=== PATIENT | female | born 1950 | race Caucasian/White ===

== ENCOUNTER 2017-10-15 18:04 | Emergency (ER) | payer MEDICARE, OTHER ==
[~2017-10-15] VITALS: Ht 160 cm; Wt 83.0 kg
[2017-10-15 18:07] VITALS: BP 120/75; PULSE 60; RESP 16; TEMP 98.2; O2SAT 97
[2017-10-15] MEDS ORDERED: ALLO300T2 PO (19:39)
[2017-10-15] MEDS ORDERED: PAXI10TA8 PO (19:39)
[2017-10-15] MEDS ORDERED: CELE200C PO (19:39)
[2017-10-15] MEDS ORDERED: ATEN1TAB74 PO (19:39)
[2017-10-15] MEDS ORDERED: DIAZ5 PO (19:39)
[2017-10-15] MEDS ORDERED: PROT40TA PO (19:39)
[2017-10-15] MEDS ORDERED: CARA1TAB6 PO (19:39)
[2017-10-15] MEDS ORDERED: ATOR10TA15 PO (19:39)
[2017-10-15] MEDS ORDERED: HYDR25TA5 PO (19:39)
--- NOTE | 2017-10-15 20:36 | RADRPT ---
EXAM DATE/TIME: 10/15/2017 19:40 [facility] COMPARISON: No previous studies available for comparison. INDICATIONS : Patient twisted left knee 3 days ago, now unable to bear weight. MEDICAL HISTORY : None. SURGICAL HISTORY : None. ENCOUNTER: Initial ACUITY: 3 days PAIN SCORE: 9/10 LOCATION: Left knee FINDINGS: Four view examination of the left knee demonstrates no evidence of fracture or dislocation. Bony min eralization is normal. The articular surfaces are intact. The suprapatellar soft tissues have a nor mal configuration. CONCLUSION: 1. No acute findings. Alexx Torres MD on October 15, 2017 at 20:33 Board Certified Radiologist. This report was verified electronically.
--- NOTE | 2017-10-15 20:38 | PD ---
HPI Chief Complaint: Injury Time Seen by Provider: 20:21 Travel History International Travel<30 days: No Contact w/Intl Traveler<30days: No Traveled to known affect area: No History of Present Illness HPI 67-year-old female presents to the ED for evaluation 04/12 knee pain. Onset yesterday after the patient states "I turned and my knee stayed." She denies falling to the ground. She states that the leg feels unstable. She denies numbness, tingling, weakness, limitations to range of motion. She denies previous injury to the knee. Patient resides in [place] and is here visiting family. PFSH Past Medical History Depression: Yes Cardiovascular Problems: Yes (HTN) High Cholesterol: Yes Diminished Hearing: No Gastrointestinal Disorders: Yes GERD: Yes Hypertension: Yes Immunizations Current: Yes Tetanus Vaccination: Unknown Influenza Vaccination: No ?: Not Menopausal: Yes Ectopic : Yes Past Surgical History Cholecystectomy: Yes Hysterectomy: Yes Social History Alcohol Use: Yes (rare) Tobacco Use: No Substance Use: No Allergies-Medications (Allergen,Severity, Reaction): Coded Allergies: Penicillins (Verified Allergy, Intermediate, ITCHING, 10/15/17) metoclopramide (Verified Adverse Reaction, Intermediate, MAKES ME CRAZY, ) Reported Meds & Prescriptions Reported Meds & Active Scripts Active Reported Carafate (Sucralfate) 1 Gram Tab 1 Gm PO DIRECTED On empty stomach Paxil (Paroxetine HCl) 10 Mg Tab 20 Mg PO DAILY Hydrochlorothiazide 25 Mg Tab 25 Mg PO DAILY Atorvastatin (Atorvastatin Calcium) 10 Mg Tab 10 Mg PO HS Valium (Diazepam) 5 Mg Tab 5 Mg PO BID PRN Protonix (Pantoprazole Sodium) 40 Mg Tab 40 Mg PO DAILY Celebrex (Celecoxib) 200 Mg Cap 200 Mg PO BID Allopurinol 300 Mg Tab 300 Mg PO DAILY Tenormin (Atenolol) 50 Mg Tab 50 Mg PO BID Review of Systems Except as stated in HPI: all other systems reviewed are Neg Physical Exam Narrative GENERAL: Well-nourished, well-developed white female in no acute distress. SKIN: Focused skin assessment warm/dry. HEAD: Normocephalic. EYES: No scleral icterus. No injection or drainage. NECK: Supple, trachea midline. No JVD or lymphadenopathy. CARDIOVASCULAR: Regular rate and rhythm without murmurs, gallops, or rubs. RESPIRATORY: Breath sounds equal bilaterally. No accessory muscle use. GASTROINTESTINAL: Abdomen soft, non-tender, nondistended. MUSCULOSKELETAL: No cyanosis, or edema. FOCUSED LEFT LOWER EXTREMITIES EXAM: 2+. No edema or ecchymosis noted. No tenderness to palpation over the anterior aspect of the knee. Moderate posterior tenderness to palpation. Patient is able to flex beyond 90 and extend to 0. Flexion elicits pain. No tenderness to palpation of the joint lines. No patellar balloting. Negative varus/valgus stress testing. Negative anterior/posterior drawer testing. BACK: Nontender without obvious deformity. No CVA tenderness. Data Data Last Documented VS Vital Signs Date Time Temp Pulse Resp B/P (MAP) Pulse Ox O2 Delivery O2 Flow Rate FiO2 10/15/17 18:07 98.2 60 16 120/75 (90) 97 Orders Orders Knee, Complete (4vws) (10/15/17 19:29) Ice/Cold Pack (10/15/17 19:29) Tramadol (Ultram) (10/15/17 20:45) ^ Knee Immobilizer (10/15/17 20:34) Ed Discharge Order (10/15/17 20:41) MDM Medical Decision Making Medical Screen Exam Complete: Yes Emergency Medical Condition: Yes Differential Diagnosis Internal derangement versus fracture versus dislocation versus other Narrative Course 67-year-old female presents to the ED for evaluation 04/12 knee pain. Onset yesterday after the patient states "I turned and my knee stayed." She denies falling to the ground. She states that the leg feels unstable. Vitals reviewed. FOCUSED LEFT LOWER EXTREMITIES EXAM: 2+. No edema or ecchymosis noted. No tenderness to palpation over the anterior aspect of the knee. Moderate posterior tenderness to palpation. Patient is able to flex beyond 90 and extend to 0. Flexion elicits pain. No tenderness to palpation of the joint lines. No patellar balloting. Negative varus/valgus stress testing. Negative anterior/posterior drawer testing. Patient was administered tramadol by mouth. X-ray reveals no acute bony injury per radiology read. Suspect internal derangement. Patient was placed in a knee immobilizer. I offered her crutches but she declined at this time. Patient takes several medications that are contraindicated with narcotic and NSAID medications. She is instructed to continue with Celebrex as previously prescribed, wear the brace unless showering until evaluated by the orthopedist, return to the ED for worsening symptoms. Patient plans to return home at the end of the week. She is stable and discharged home. Diagnosis Primary Impression: Internal derangement of knee Qualified Codes: M23.92 - Unspecified internal derangement of left knee Referrals: Orthopedist Patient Instructions: General Instructions, Knee Immobilizer (ED), Knee Pain ( ED) Additional Instructions: Rest, ice, elevate the extremity. Apply ice no longer than 10-15 minutes per hour a few times a day. Continue home medications as prescribed. Wear the knee immobilizer unless showering until cleared by the orthopedist. Follow up with the orthopedist as discussed. Return to the ED for any urgent or emergent medical condition. Disposition: 01 DISCHARGE HOME Condition: Stable Chari Lovell Oct 15, 2017 20:38
[2017-10-15] MEDS ORDERED: traMADol HCL 50 MG TAB PO ONE (20:45)
== END 2017-10-15 21:18 | disposition home or self-care (01) ==
LOC: PHED 18:04 → PHEFT 21:18
DX: M23.92 Unspecified internal derangement of left knee (principal); I10 Essential (primary) hypertension; E78.00 Pure hypercholesterolemia, unspecified; K21.9 Gastro-esophageal reflux disease without esophagitis; F32.9 Major depressive disorder, single episode, unspecified; Z87.19 Personal history of other diseases of the digestive system
CPT/HCPCS: 73564; 99283